=== PATIENT | male | born 1995 | race African-American/Black ===

== ENCOUNTER 2019-03-18 09:08 | Emergency (ER) | payer MEDICAID, OTHER ==
[~2019-03-18] VITALS: Ht 185.4 cm; Wt 62.0 kg
--- NOTE | 2019-03-18 09:30 | NUR ---
pt. became verbally agitated. began to yell. was able to re-direct pt, pt. was not agitated and cooperative when giving meds
[2019-03-18] MEDS ORDERED: LORazepam 2 mg/ml vial IM ONE (09:45)
[2019-03-18] MEDS ORDERED: haloperidol lactate 5mg/ml inj IM ONE (09:50)
[2019-03-18] MEDS ORDERED: haloperidol lactate 5mg/ml inj ONE (09:51)
[2019-03-18 10:15] LABS: CLARITY,URINE CLEAR (Clear); COLOR,URINE YELLOW (Yellow); GLUCOSE, URINE NEGATIVE (Neg); KETONES,URINE NEGATIVE (Neg); LEUKOCYTE ESTERASE ,URINE NEGATIVE (Neg); NITRITES, URINE NEGATIVE (Neg); OCCULT BLOOD,URINE NEGATIVE (Neg); PROTEIN,URINE 30 mg/dl (Neg)
[2019-03-18 10:20] LABS: UA COLLECTION TYPE CLN CATCH MIDSTREAM
[2019-03-18 10:23] LABS: BACTERIA,URINE NONE SEEN /HPF (Neg); MUCUS STRANDS MODERATE /LPF (Neg); RBC,URINE NONE SEEN /HPF (0-2); SQUAMOUS EPITHELIAL CELL,UR FEW /LPF (FEW); WBC,URINE 0-4 /HPF (0-4)
[2019-03-18 10:27] LABS: URINE AMPHETAMINE SCREEN NEGATIVE (Neg); URINE BARBITUATE SCREEN NEGATIVE (Neg); URINE BENZODIAZEPINES SCREEN NEGATIVE (Neg); URINE CANNABINOID SCREEN POSITIVE (Neg); URINE COCAINE SCREEN NEGATIVE (Neg); URINE METHADONE SCREEN NEGATIVE (Neg); URINE OPIATE SCREEN NEGATIVE (Neg); URINE PHENCYCLIDINE SCREEN NEGATIVE (Neg)
[2019-03-18 11:14] LABS: BASOPHILS % (AUTO) 0.3 % (0-1); EOSINOPHILS % (AUTO) 0.1 % (0-6); HEMATOCRIT 43.5 % (42.0-52.0); HEMOGLOBIN 14.7 g/dl (14.0-17.9); LYMPHOCYTES # (AUTO) 1.4 X10'3 (1.1-4.8); LYMPHOCYTES % (AUTO) 17.9 % (21-51); MEAN CORPUSCULAR HEMOGLOBIN 28.6 PG (27.0-31.0); MEAN CORPUSCULAR HGB CONC 33.8 g/dL (33.0-36.5); MEAN CORPUSCULAR VOLUME 84.6 FL (78-98); MEAN PLATELET VOLUME 9.2 FL (7.4-10.4); MONOCYTES # (AUTO) 0.5 X10'3 (0-0.9); MONOCYTES % (AUTO) 7.1 % (2-12); NEUTROPHILS # (AUTO) 5.7 X10'3 (1.8-7.7); NEUTROPHILS % (AUTO) 74.6 % (42-75); PLATELET COUNT 214 X10'3 (140-440); RED BLOOD COUNT 5.14 X10'6 (4.70-6.10); RED CELL DISTRIBUTION WIDTH 14.2 % (11.5-14.5); WHITE BLOOD COUNT 7.6 X10'3 (4.5-11.0)
--- NOTE | 2019-03-18 11:15 | NUR ---
Pt taken over to ED overflow bed 27 from ED room 14. Pt currently calm and cooperative and being orientated to environment and policies.
[2019-03-18 11:28] LABS: ALANINE AMINOTRANSFERASE 33 U/L (12-78); ALBUMIN 4.2 G/DL (3.4-5.0); ALBUMIN/GLOBULIN RATIO 1.1 (1.1-1.5); ALKALINE PHOSPHATASE 50 IU/L (46-116); ANION GAP 11 (8-16); ASPARTATE AMINO TRANSFERASE 30 U/L (10-37); BILIRUBIN,TOTAL 0.5 MG/DL (0.1-1.0); BLOOD UREA NITROGEN 11 MG/DL (7-18); BUN/CREATININE RATIO 10.4 (5.4-32.0); CALCIUM 9.3 MG/DL (8.5-10.1); CHLORIDE 103 MMOL/L (99-107); CREATININE 1.06 MG/DL (0.60-1.10); GLUCOSE 110 MG/DL (70-104); SODIUM 141 MMOL/L (135-145); TOTAL CARBON DIOXIDE 26.6 MMOL/L (24-32); eGFR 85 ML/MIN
[2019-03-18 11:36] LABS: ETHANOL < 0.010 GM/DL (0.0-0.010)
--- NOTE | 2019-03-18 11:55 | NUR ---
Pt mother here visiting pt at bedside.
--- NOTE | 2019-03-18 14:09 | NUR ---
JUST FINISHED LUNCH. PT RESTING CALMLY IN POC WITH MOM AT BEDSIDE. UP TO BR WITHOUT INCIDENT.
--- NOTE | 2019-03-18 14:16 | NUR ---
susant faxed to [facility]
--- NOTE | 2019-03-18 15:16 | NUR ---
CALLED [facility] AND SPOKE WITH DANIEL GASPAR. REQUESTED PT HAVE A MEDICATION REVIEW/RECOMMENDATION BY PSYCHIATRIST.
--- NOTE | 2019-03-18 17:40 | NUR ---
PT WAS SEEN BY DR. PANTERA SARABIA. RECEIVED ORDERS TO CALL [facility] FOR FOLLOWING SCRIPT ORDERS: ZYPREXA 15 mg PO 1 PILL QHS #30 VISTARIL 50mg 1 pill Q8 hrs PRN anxiety #45 REMERON 15mg take 0.5(half) pill QHS #15
--- NOTE | 2019-03-18 17:42 | NUR ---
Informed by Dr. Villa that pt is to be discharged and that provider Yvonne HERRMANN will be getting DC paperwork in order.
--- NOTE | 2019-03-18 17:55 | NUR ---
Scripts were called in, informed meds will not be available till tomorrow. Pt and pts mother informed and denies need to be called into another pharmacy for later hrs of open operation.
--- NOTE | 2019-03-18 18:15 | NUR ---
Received VO from Hardik HERRMANN for Zyprexa 15mg PO x 1 now as pt to be DC'd and will not be able to get tonights dose as pharmacy closed.
[2019-03-18] MEDS ORDERED: OLANZapine 2.5MG tablet PO SCH (18:20)
[2019-03-18] MEDS ORDERED: OLANZapine 5mg rapidly disint. tablet PO ONE (18:20)
--- NOTE | 2019-03-18 18:46 | NUR ---
Nola - mother at pt bedside. Will be transport for patient at DC.
[2019-03-18 19:07] VITALS: BP 148/107
== END 2019-03-18 19:12 ==
LOC: ER 09:09
DX: F20.9 Schizophrenia, unspecified (principal); R45.851 Suicidal ideations; R45.1 Restlessness and agitation
CPT/HCPCS: 36415; 80053; 80305; 80320; 81001; 84443; 85025; 96372; 99284; J1630; J2060

== ENCOUNTER 2019-03-19 14:59 | Emergency (ER) | payer MEDICAID, OTHER ==
[~2019-03-19] VITALS: Ht 185.4 cm; Wt 73.6 kg
[2019-03-19 16:15] VITALS: BP 124/76
== END 2019-03-19 16:16 | disposition home or self-care (01) ==
LOC: ER 15:00
DX: R53.1 Weakness (principal); F20.9 Schizophrenia, unspecified
CPT/HCPCS: 99281

== ENCOUNTER 2019-09-09 08:52 | Emergency (ER) | payer MEDICAID, MEDICARE, OTHER ==
[~2019-09-09] VITALS: Ht 185.4 cm; Wt 76.9 kg
[2019-09-09] MEDS ORDERED: LORazepam 1 MG tablet PO ONE ×2 (10:10→18:25)
[2019-09-09] MEDS ORDERED: diphenhydrAMINE 25mg capsule PO ONE (10:10)
[2019-09-09] MEDS ORDERED: OLANZapine 2.5MG tablet PO SCH (10:10)
--- NOTE | 2019-09-09 10:14 | NUR ---
PT AGITATED WITH QUESTIONING AND RAISING HIS VOICE. PT HEARING VOICES BUT REFUSED TO TELL THE DOCTOR WHAT HE WAS HEARING. PT STATES WE ARE BOMBARDING HIM WITH QUESTIONS AND KEEPS SAYING "IM FINE" PER MOM HE HAS A DX OF SCHITZOPHRENIA AND HAD BEEN ON MEDICATION BUT STOPPED TAKING THEM. PT STATES "IM TRYING TO DETOX" MOM STATES HE HAS A HX OF STOPPING EATING. THE DOCTOR TAKES MOM OUT IN THE HALLWAY TO TALK TO HER BECAUSE PT GETTING MORE AGITATED HE HEARS WHAT MOM IS SAYING. SECURITY CALLED AND IS NEAR THE DOOR. THE ROOM HAS BEEN STRIPPED. MOM STATES THAT THE PT WILL TAKE PO MEDICATIONS AND THE DOCTOR HAS PLACED THE MED ORDER.
[2019-09-09] MEDS ORDERED: LORazepam 2 mg/ml vial IM ONE ×2 (10:45→18:50)
[2019-09-09] MEDS ORDERED: OLANZapine **IM** 10 mg inj. IM ONE (10:45)
[2019-09-09] MEDS ORDERED: diphenhydrAMINE 50 mg/ml inj IM ONE ×2 (10:45→18:50)
--- NOTE | 2019-09-09 10:55 | NUR ---
PT REFUSES TO TAKE THE ORAL MEDICATIONS. PT HAS RAPID PRESSURED SPEECH AND IS AGITATED. ASKING REPEATEDLY QUESTIONS ABOUT THE MEDICATIONS, ARE THEY GOING TO MAKE HIM SLEEPY. INFORM THEY ARE AN ANTIPSYCHOTIC AND NOT FOR SLEEP. SECURITY IS CALLD TO OUTSIDE ROOM DUE TO PT'S AGITATION. PT CONTINUES TO REFUSE TO TAKE THE PILLS. IT BOTHERS HIM THAT THERE ARE 4 PILLS AND HE ONLY TAKES ONE PILL AT HOME. MOM HAS THE EMPTY PILL CONTAINERS IN HER PURSE. GO OVER THE PILL INFORMATION ON THE BOTTLES WITH PT AND INFORM PT THAT THE MEDICATION THAT HE NEEDS TO TAKE IS NOT THE SAME THOSE. IT IS AN ANTIPSYCHOTIC AND NOT FOR SLEEP. PT FINALLY AGREES TO TAKE THE MEDICATION. PT IS SITTING ON THE GURNEY AND IS CALM.
--- NOTE | 2019-09-09 11:04 | NUR ---
DUE TO THE DELAY IN PT TAKING THE ORAL MEDICATION, DR KNOX ORDERS THE SAME MEDS IM. NOTIFY DR KNOX THAT PT DID TAKE THE ORAL MEDICATIONS.
[2019-09-09 11:55] LABS: EOSINOPHILS % (AUTO) 0.4 % (0-6); MONOCYTES # (AUTO) 0.5 X10'3 (0-0.9); NEUTROPHILS # (AUTO) 5.3 X10'3 (1.8-7.7); WHITE BLOOD COUNT 6.8 X10'3 (4.5-11.0)
[2019-09-09 11:57] LABS: BASOPHILS % (AUTO) 0.4 % (0-1); HEMATOCRIT 44.9 % (42.0-52.0); HEMOGLOBIN 15.2 g/dl (14.0-17.9); LYMPHOCYTES % (AUTO) 15.2 % (21-51); MEAN CORPUSCULAR HEMOGLOBIN 28.6 PG (27.0-31.0); MEAN CORPUSCULAR VOLUME 84.4 FL (78-98); MEAN PLATELET VOLUME 9.3 FL (7.4-10.4); MONOCYTES % (AUTO) 7.1 % (2-12); NEUTROPHILS % (AUTO) 76.9 % (42-75); PLATELET COUNT 238 X10'3 (140-440); RED BLOOD COUNT 5.32 X10'6 (4.70-6.10); RED CELL DISTRIBUTION WIDTH 15.5 % (11.5-14.5)
[2019-09-09 12:08] LABS: ALANINE AMINOTRANSFERASE 18 U/L (12-78); ALBUMIN 4.3 G/DL (3.4-5.0); ALKALINE PHOSPHATASE 82 IU/L (46-116); ANION GAP 10 (8-16); ASPARTATE AMINO TRANSFERASE 22 U/L (10-37); BILIRUBIN,TOTAL 0.3 MG/DL (0.1-1.0); BLOOD UREA NITROGEN 7 MG/DL (7-18); BUN/CREATININE RATIO 6.9 (5.4-32.0); CALCIUM 9.6 MG/DL (8.5-10.1); CHLORIDE 102 MMOL/L (99-107); CREATININE 1.01 MG/DL (0.60-1.10); ETHANOL 0.045 GM/DL (0.0-0.010); GLUCOSE 93 MG/DL (70-104); POTASSIUM 3.6 MMOL/L (3.5-5.1); SODIUM 139 MMOL/L (135-145); TOTAL CARBON DIOXIDE 27.5 MMOL/L (24-32); TOTAL PROTEIN 8.4 G/DL (6.4-8.2); eGFR > 90 ML/MIN
--- NOTE | 2019-09-09 12:15 | NUR ---
PT IS CALM AND COOPERATIVE IN GIVEN URINE SPECIMEN. MOM HAS GONE TO GET SOMETHING TO EAT.
--- NOTE | 2019-09-09 13:00 | NUR ---
PT'S MOM TAKES PT'S BELONGINGS HOME WITH HER. PT NOW IN GREEN SCRUBS.
[2019-09-09 13:17] LABS: URINE AMPHETAMINE SCREEN NEGATIVE (Neg); URINE BARBITUATE SCREEN NEGATIVE (Neg); URINE BENZODIAZEPINES SCREEN NEGATIVE (Neg); URINE CANNABINOID SCREEN POSITIVE (Neg); URINE COCAINE SCREEN NEGATIVE (Neg); URINE METHADONE SCREEN NEGATIVE (Neg); URINE OPIATE SCREEN NEGATIVE (Neg); URINE PHENCYCLIDINE SCREEN NEGATIVE (Neg)
--- NOTE | 2019-09-09 18:45 | NUR ---
PATIENT EXTREMELY AGGITATED RAISING VOICE, WAVING HANDS ROUND SITTING ON EDGE OF BED BOUNCING UP AND DOWN. CONTINUALLY REFERRING TO "SPIRITUAL WARFARE" STATING THAT IT IS "GOING ON IN HIS HEAD RIGHT NOW" PATIENT STATING THAT HE IS NOT GOING TO STAY THAT WE "CANNOT LEGALLY HOLD HIM" PATIENT UNABLE TO LISTEN OR FOLLOW DIRECTIONS REFUSING TO TAKE MEDICATIONS. PATIENT GIVEN MEDICATIONS THROUGH IM INJECTION. PATIENT WAS COMPLIANT WITH THIS SECURITY ON STANDY BY OUTSIDE OF ROOM AT THIS TIME.
[2019-09-09] MEDS ORDERED: haloperidol lactate 5mg/ml inj IM ONE (18:50)
[2019-09-09] MEDS ORDERED: haloperidol lactate 5mg/ml inj ONE (18:56)
--- NOTE | 2019-09-09 19:44 | NUR ---
PATIENT SLEEPING ON RIGHT SIDE AT THIS TIME
--- NOTE | 2019-09-09 21:30 | NUR ---
PATIENT UNABLE TO TELL ME HIS HOME MEDICATIONS. MED REC NOT COMPLETED.
--- NOTE | 2019-09-10 06:32 | NUR ---
Patient is currently sleeping on bed, lying on right side.
[2019-09-10 07:00] VITALS: BP 140/88
--- NOTE | 2019-09-10 07:59 | NUR ---
Patient given breakfast tray. Light turned on. Patient is eating.
[2019-09-10] MEDS ORDERED: OLANZAPINE 5 MG TABLET PO ONE (10:10)
== END 2019-09-10 11:46 ==
LOC: ER 08:53
DX: F20.9 Schizophrenia, unspecified (principal); F12.90 Cannabis use, unspecified, uncomplicated; Z72.89 Other problems related to lifestyle
CPT/HCPCS: 36415; 80053; 80305; 80320; 85025; 96372; 99284; J1200; J1630; J2060; Q0163